=== PATIENT | male | born 1995 | race Asian ===

== ENCOUNTER 2021-11-16 14:26 | Outpatient (CLI) | payer OTHER ==
--- NOTE | 2021-11-16 16:50 | MRI Report ---
PROCEDURE: Knee RT W/O INDICATIONS: PAIN IN RIGHT KNEE TECHNIQUE: Noncontrast sagittal PD fast spin echo and T2 fast spin echo with fat saturation, sagittal 3-D gradie nt sequence with fat saturation; coronal T1 spin echo and PD fast spin echo with fat saturation, and axial PD fast spin echo with fat saturation through the knee. COMPARISON: None. FINDINGS: Image quality: Excellent. Menisci: Linear horizontal high signal intensity traverses the posterior horn medial meniscus, demons trating superior articular surface extension, indicating horizontal tearing. Lateral meniscus is inta ct. Cruciate ligaments: The anterior and posterior cruciate ligaments appear intact. Medial structures: The medial collateral ligament appears intact. Visualized portions of the pes ans erinus tendons appear normal. No abnormal bursal fluid. Lateral structures: The lateral collateral ligament, long and short heads of the biceps femoris tend on appear intact. The popliteus tendon appears normal. Iliotibial band appears normal. Anterior structures: The quadriceps and patellar tendons appear intact. Patellar alignment is santino l. No femoral trochlear dysplasia or ventral trochlear prominence. No edema in the infrapatellar fa t pad. Bones and cartilage: No bone marrow contusions or fractures. The cartilage of the medial and latera l femorotibial compartments, as well as the patellofemoral compartment, appears normal in thickness. Joint space: There is physiologic knee joint fluid. No Llanos's cyst. Normal appearing synovial pli are incidentally noted. IMPRESSION: 1. Medial meniscal tearing. Reviewed by: Manav Cole MD on 11/16/2021 4:49 PM PDT Approved by: Manav Cole MD on 11/16/2021 4:49 PM PDT Station ID: [id number]
== END 2021-11-16 14:27 | disposition home or self-care (01) ==
LOC: DI 14:26
DX: S83.241A Other tear of medial meniscus, current injury, right knee, initial encounter (principal)